=== PATIENT | male | born 1995 | race African-American/Black ===

== ENCOUNTER → 2018-04-01 | Outpatient (CLI) | payer OTHER | LOC: M RAD 08:37 | DX: M25.562 Pain in left knee (principal); Z87.81 Personal history of (healed) traumatic fracture | CPT/HCPCS: 73564 ==

== ENCOUNTER 2018-06-27 12:41 | Emergency (ER) | payer OTHER ==
[~2018-06-27] VITALS: Ht 182.9 cm; Wt 87.7 kg
--- NOTE | 2018-06-27 13:35 | REP ---
Chest two views HISTORY: Chest pain Comparison: None A calcified granuloma is present in the right lower lobe. The left lung is clear. The heart is normal in size. The pulmonary vasculature is normal in appearance. The bony structure is intact. IMPRESSION: No acute disease. Electronically Signed by Maged Vazquez MD 06/27/2018 01:26 P
[2018-06-27 14:13] VITALS: BP 169/96
[2018-06-27 14:16] LABS: BASO # 0.1 10^3/uL (0.0-0.2); BASO % 1.4 % (0.0-1.0); EOS # 0.2 10^3/uL (0.0-0.50); HEMATOCRIT 45.6 % (42.0-52.0); HEMOGLOBIN 15.8 g/dl (13.5-17.5); LYMPH # 2.5 10^3/uL (1.5-6.5); LYMPH % 48.9 % (24.0-44.0); MEAN CORPUSCULAR HEMOGLOBIN 27.3 pg (27.0-33.0); MEAN CORPUSCULAR HGB CONC 34.6 g/dl (32.0-36.5); MEAN CORPUSCULAR VOLUME 78.9 fl (80.0-96.0); MONO # 0.3 10^3/uL (0.0-0.8); MONO % 5.4 % (0.0-5.0); NEUTROPHILS # 2.1 10^3/uL (1.8-7.7); NEUTROPHILS % 41.1 % (36.0-66.0); PLATELET COUNT, AUTOMATED 253 10^3/uL (150-450); RED BLOOD COUNT 5.78 10^6/uL (4.30-6.10)
[2018-06-27 14:48] LABS: ERYTHROCYTE SEDIMENTATION RATE 1 mm/hr (0-15)
[2018-06-27 15:56] LABS: ALBUMIN 4.6 GM/DL (3.2-5.2); ALT/SGPT 37 U/L (12-78); BILIRUBIN,DIRECT 0.2 MG/DL (0.0-0.2); BILIRUBIN,TOTAL 1.1 MG/DL (0.2-1.0); BLOOD UREA NITROGEN 9 MG/DL (7-18); C REACTIVE PROTEIN QUANTITATIV < 0.30 MG/DL (0.00-0.30); CALCIUM LEVEL 9.5 MG/DL (8.5-10.1); CARBON DIOXIDE LEVEL 29 MEQ/L (21-32); CHLORIDE LEVEL 106 MEQ/L (98-107); CPK CREATINE PHOSPHOKINASE 437 U/L (39-308); CREATININE FOR GFR 1.02 MG/DL (0.70-1.30); GLOMERULAR FILTRATION RATE > 60.0 (>60); GLUCOSE, FASTING 90 MG/DL (70-100); LIPASE 66 U/L (73-393); MB/CK RELATIVE INDEX 0.48 (< OR =4); NT-PRO BNP 47 PG/ML (<125); POTASSIUM SERUM 4.7 MEQ/L (3.5-5.1); SODIUM LEVEL 142 MEQ/L (136-145); TOTAL PROTEIN 7.9 GM/DL (6.4-8.2); TROPONIN I < 0.02 NG/ML (< 0.10)
--- NOTE | 2018-06-27 19:54 | ECGEPIP ---
Stationary ECG Study [facility] - ED Test Date: 2018-06-27 Pat Name: JONATHAN NGUYỄN Department: Room: - Gender: M [employer] H[employer] Consultant: lauren : 1995 Requested By: Abdirahman Oliveira Order Number: [id number] Reading MD: Abdirahman Oliveira Measurements Intervals [place] Rate: 43 P: 46 IN: 187 QRS: 61 QRSD: 97 T: 88 QT: 410 QTc: 350 Interpretive Statements SINUS BRADYCARDIA MODERATE VOLTAGE CRITERIA FOR LVH, CONSIDER NORMAL VARIANT NONSPECIFIC ST & T-WAVE ABNORMALITY POSSIBLE U WAVE - CLINICAL CORRELATION ADVISED FOR HYPOKALEMIA NO OLD ECG FOR COMPARISON Electronically Signed On 06-27-2018 19:53:57 EST by Abdirahman Oliveira
--- NOTE | 2018-06-27 20:04 | ECGEPIP ---
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
== END 2018-06-27 17:05 | disposition home or self-care (01) ==
LOC: M ED 12:41
DX: J40 Bronchitis, not specified as acute or chronic (principal); R07.89 Other chest pain; Z72.0 Tobacco use